=== PATIENT | male | born 1990 | race Caucasian/White ===

== ENCOUNTER 2021-05-15 02:27 | Inpatient (IN) | payer OTHER ==
[2021-05-15 02:48] VITALS: BMI 23.1
[2021-05-15] MEDS ORDERED: ONDANSETRON *ODT* 4 MG TABLET SL PRN (03:42)
[2021-05-15] MEDS ORDERED: IBUPROFEN 400 MG TABLET (FP) PO PRN (03:42)
[2021-05-15] MEDS ORDERED: MENTHOL/PHENOL 1 EACH UD MM PRN (03:42)
[2021-05-15] MEDS ORDERED: NICOTINE POLACRILEX 2 MG GUM BUC PRN (03:42)
[2021-05-15] MEDS ORDERED: BISMUTH SUBSALICYLATE 524 MG/30 ML PO PRN (03:42)
[2021-05-15] MEDS ORDERED: MAGNESIUM HYDROX 2400MG/30ML ORAL SUSPENSION 30 ML CUP PO PRN (03:42)
[2021-05-15] MEDS ORDERED: ACETAMINOPHEN 325 MG TABLET (FP) PO PRN (03:42)
[2021-05-15] MEDS ORDERED: MAGNESIUM CITRATE 300 ML BOTTLE PO PRN (03:42)
[2021-05-15] MEDS ORDERED: METHOCARBAMOL 500 MG TABLET PO PRN (03:42)
[2021-05-15] MEDS ORDERED: MAG HYDROX/AL HYDROX/SIMETH 30 ML UNIT-DOSE CUP PO PRN (03:42)
[2021-05-15] MEDS ORDERED: chlordiazePOXIDE HCL 25 MG CAPSULE PO PRN (09:57)
[2021-05-15 10:25] LABS: MCH 32.6 pg (25.7-33.7); MCHC 35.1 g/dl (32.0-35.9); PLATELET COUNT 239 10^3/uL (134-434); RDW 13.3 % (11.9-15.9); WHITE BLOOD COUNT 6.4 K/mm3 (4.0-10.0)
[2021-05-15 10:29] LABS: ALBUMIN 3.6 g/dl (3.4-5.0); BLOOD UREA NITROGEN 6.4 mg/dL (7-18); CALCIUM 9.1 mg/dL (8.5-10.1)
[2021-05-15 10:31] LABS: BILIRUBIN,TOTAL 0.4 mg/dL (0.2-1)
[2021-05-15] MEDS: NICOTINE 14 MG/24 HOURS TOPICAL PATCH TD SCH (10:31)
[2021-05-15 10:32] LABS: CREATININE 0.8 mg/dL (0.55-1.3)
[2021-05-15] MEDS: chlordiazePOXIDE HCL 25 MG CAPSULE PO SCH ×3 (10:32→22:09)
[2021-05-15] MEDS: ACETAMINOPHEN 325 MG TABLET (FP) PO PRN ×2 (10:32→18:06)
[2021-05-15] MEDS: PRENATAL VITAMINS W/ FOLIC ACID TABLET (FP) PO SCH (10:33)
[2021-05-15] MEDS: MELATONIN 5 MG TABLETS PO SCH (22:09)
[2021-05-15] MEDS: THIAMINE HCL 100 MG TABLET (FP) PO SCH (22:09)
[2021-05-16] MEDS: chlordiazePOXIDE HCL 25 MG CAPSULE PO SCH ×4 (06:58→22:32)
[2021-05-16] MEDS: NICOTINE 14 MG/24 HOURS TOPICAL PATCH TD SCH (09:04)
[2021-05-16] MEDS: PRENATAL VITAMINS W/ FOLIC ACID TABLET (FP) PO SCH (10:25)
[2021-05-16] MEDS: MELATONIN 5 MG TABLETS PO SCH (22:31)
[2021-05-16] MEDS: THIAMINE HCL 100 MG TABLET (FP) PO SCH (22:31)
[2021-05-17] MEDS: chlordiazePOXIDE HCL 25 MG CAPSULE PO SCH ×4 (06:33→22:08)
[2021-05-17] MEDS: PRENATAL VITAMINS W/ FOLIC ACID TABLET (FP) PO SCH (10:14)
[2021-05-17] MEDS: NICOTINE 14 MG/24 HOURS TOPICAL PATCH TD SCH (10:14)
[2021-05-17] MEDS: NICOTINE 10 MG CARTRIDGE (INHALER) IH PRN ×2 (15:00→20:01)
[2021-05-17] MEDS: THIAMINE HCL 100 MG TABLET (FP) PO SCH (22:07)
[2021-05-17] MEDS: MELATONIN 5 MG TABLETS PO SCH (22:08)
[2021-05-18] MEDS ORDERED: chlordiazePOXIDE HCL 10 MG CAPSULE PO PRN
[2021-05-18] MEDS: chlordiazePOXIDE HCL 10 MG CAPSULE PO SCH ×2 (06:32→10:20)
[2021-05-18] MEDS: PRENATAL VITAMINS W/ FOLIC ACID TABLET (FP) PO SCH (09:49)
[2021-05-18] MEDS: NICOTINE 10 MG CARTRIDGE (INHALER) IH PRN ×3 (09:50→20:29)
[2021-05-18] MEDS: NICOTINE 14 MG/24 HOURS TOPICAL PATCH TD SCH (09:50)
[2021-05-18] MEDS ORDERED: chlordiazePOXIDE HCL 10 MG CAPSULE PO ONE (22:00)
[2021-05-18] MEDS: THIAMINE HCL 100 MG TABLET (FP) PO SCH (22:25)
[2021-05-18] MEDS: MELATONIN 5 MG TABLETS PO SCH (22:25)
[2021-05-18] MEDS: ACETAMINOPHEN 325 MG TABLET (FP) PO PRN (22:26)
[2021-05-19] MEDS ORDERED: chlordiazePOXIDE HCL 10 MG CAPSULE PO ONE (05:00)
[2021-05-19] MEDS ORDERED: chlordiazePOXIDE HCL 10 MG CAPSULE PO SCH (05:00)
[2021-05-19 08:19] VITALS: TEMP 97.3
[2021-05-19 09:08] VITALS: BP 101/67; PULSE 80
[2021-05-19] MEDS: PRENATAL VITAMINS W/ FOLIC ACID TABLET (FP) PO SCH (09:34)
[2021-05-19] MEDS: NICOTINE 14 MG/24 HOURS TOPICAL PATCH TD SCH (09:35)
[2021-05-20] MEDS ORDERED: chlordiazePOXIDE HCL 10 MG CAPSULE PO ONE (05:00)
== END 2021-05-19 09:37 | disposition home or self-care (01) | DRG 775 ==
LOC: YASAS 02:27 → Y3N 03:10 → UNDOADMIN 03:10
PROVIDERS: ADMIT Allergy & Immunology; ATTEND Allergy & Immunology
PROC: HZ2ZZZZ Detoxification Services for Substance Abuse Treatment (ICD-10-PCS; principal; 2021-05-15)
DX: F10.230 Alcohol dependence with withdrawal, uncomplicated (principal); F17.210 Nicotine dependence, cigarettes, uncomplicated
CPT/HCPCS: 36415; 80053; 85027; 86780; 93005; 93010; C9803; U0003; U0005

== ENCOUNTER 2021-08-29 01:27 | Inpatient (IN) | payer OTHER ==
[2021-08-29] MEDS ORDERED: IBUPROFEN 400 MG TABLET (FP) PO PRN (02:26)
[2021-08-29] MEDS ORDERED: MENTHOL/PHENOL 1 EACH UD MM PRN (02:26)
[2021-08-29] MEDS ORDERED: BISMUTH SUBSALICYLATE 524 MG/30 ML PO PRN (02:26)
[2021-08-29] MEDS ORDERED: METHOCARBAMOL 500 MG TABLET PO PRN (02:26)
[2021-08-29] MEDS ORDERED: MAGNESIUM HYDROX 2400MG/30ML ORAL SUSPENSION 30 ML CUP PO PRN (02:26)
[2021-08-29] MEDS ORDERED: LOPERAMIDE HCL 2 MG CAPSULE PO PRN (02:26)
[2021-08-29] MEDS ORDERED: ONDANSETRON *ODT* 4 MG TABLET SL PRN (02:26)
[2021-08-29] MEDS ORDERED: MAG HYDROX/AL HYDROX/SIMETH 30 ML UNIT-DOSE CUP PO PRN (02:26)
[2021-08-29] MEDS ORDERED: ACETAMINOPHEN 325 MG TABLET (FP) PO PRN ×2 (02:26)
[2021-08-29] MEDS ORDERED: chlordiazePOXIDE HCL 25 MG CAPSULE PO PRN (02:26)
[2021-08-29] MEDS ORDERED: MAGNESIUM CITRATE 300 ML BOTTLE PO PRN (02:26)
[2021-08-29] MEDS ORDERED: NICOTINE POLACRILEX 2 MG GUM BUC PRN (02:26)
[2021-08-29 03:09] VITALS: BMI 23.4
[2021-08-29] MEDS: chlordiazePOXIDE HCL 25 MG CAPSULE PO SCH ×4 (06:06→22:14)
[2021-08-29] MEDS ORDERED: DOXYCYCLINE HYCLATE 100 MG CAPSULE PO SCH ×2 (10:00)
[2021-08-29] MEDS: PRENATAL VITAMINS W/ FOLIC ACID TABLET (FP) PO SCH (10:24)
[2021-08-29] MEDS: DOXYCYCLINE HYCLATE 100 MG TABLET PO SCH ×2 (10:28→17:28)
[2021-08-29] MEDS: NICOTINE 14 MG/24 HOURS TOPICAL PATCH TD SCH (10:31)
[2021-08-29 16:16] LABS: HEMATOCRIT 38.8 % (35.4-49); HEMOGLOBIN 13.5 GM/dL (11.7-16.9); MCHC 34.9 g/dl (32.0-35.9); MEAN CELL VOLUME 88.9 fl (80-96); MEAN PLT VOLUME 7.9 fl (7.5-11.1); PLATELET COUNT 272 10^3/uL (134-434); RBC 4.36 M/mm3 (4.00-5.60); RDW 13.1 % (11.9-15.9); WHITE BLOOD COUNT 5.8 K/mm3 (4.0-10.0)
[2021-08-29 16:22] LABS: ALBUMIN 3.7 g/dl (3.4-5.0); BLOOD UREA NITROGEN 7.7 mg/dL (7-18); CALCIUM 8.5 mg/dL (8.5-10.1)
[2021-08-29 16:25] LABS: CREATININE 0.9 mg/dL (0.55-1.3)
[2021-08-29 16:26] LABS: BILIRUBIN,TOTAL 0.4 mg/dL (0.2-1); TOT PROT 6.6 g/dl (6.4-8.2)
[2021-08-29] MEDS ORDERED: NICOTINE 10 MG CARTRIDGE (INHALER) IH SCH (19:45)
[2021-08-29] MEDS: NICOTINE 10 MG CARTRIDGE (INHALER) IH SCH (21:52)
[2021-08-29] MEDS: THIAMINE HCL 100 MG TABLET (FP) PO SCH (22:14)
[2021-08-29] MEDS: MELATONIN 5 MG TABLETS PO SCH (22:14)
[2021-08-30] MEDS: chlordiazePOXIDE HCL 25 MG CAPSULE PO SCH ×4 (05:59→22:21)
[2021-08-30] MEDS: NICOTINE 10 MG CARTRIDGE (INHALER) IH SCH ×5 (05:59→19:25)
[2021-08-30] MEDS: NICOTINE 14 MG/24 HOURS TOPICAL PATCH TD SCH (10:16)
[2021-08-30] MEDS: DOXYCYCLINE HYCLATE 100 MG TABLET PO SCH ×2 (10:17→18:09)
[2021-08-30] MEDS: PRENATAL VITAMINS W/ FOLIC ACID TABLET (FP) PO SCH (10:18)
[2021-08-30] MEDS: THIAMINE HCL 100 MG TABLET (FP) PO SCH (22:21)
[2021-08-30] MEDS: MELATONIN 5 MG TABLETS PO SCH (22:22)
[2021-08-31] MEDS ORDERED: chlordiazePOXIDE HCL 10 MG CAPSULE PO PRN
[2021-08-31] MEDS: chlordiazePOXIDE HCL 10 MG CAPSULE PO SCH ×4 (05:31→22:20)
[2021-08-31] MEDS: NICOTINE 10 MG CARTRIDGE (INHALER) IH SCH ×4 (05:32→22:21)
[2021-08-31 08:06] LABS: SARS-CoV-2 NAA Not Detected (Not Detected)
[2021-08-31] MEDS: DOXYCYCLINE HYCLATE 100 MG TABLET PO SCH ×2 (10:44→17:20)
[2021-08-31] MEDS: NICOTINE 14 MG/24 HOURS TOPICAL PATCH TD SCH (10:44)
[2021-08-31] MEDS: PRENATAL VITAMINS W/ FOLIC ACID TABLET (FP) PO SCH (10:44)
[2021-08-31] MEDS: THIAMINE HCL 100 MG TABLET (FP) PO SCH (22:20)
[2021-08-31] MEDS: MELATONIN 5 MG TABLETS PO SCH (22:21)
[2021-09-01] MEDS: NICOTINE 10 MG CARTRIDGE (INHALER) IH SCH ×2 (01:55→10:25)
[2021-09-01] MEDS ORDERED: chlordiazePOXIDE HCL 10 MG CAPSULE PO SCH (05:00)
[2021-09-01 09:45] VITALS: BP 133/77; PULSE 94; TEMP 97.1
[2021-09-01] MEDS: DOXYCYCLINE HYCLATE 100 MG TABLET PO SCH (10:25)
[2021-09-01] MEDS: PRENATAL VITAMINS W/ FOLIC ACID TABLET (FP) PO SCH (10:25)
[2021-09-01] MEDS: NICOTINE 14 MG/24 HOURS TOPICAL PATCH TD SCH (10:25)
[2021-09-02] MEDS ORDERED: chlordiazePOXIDE HCL 10 MG CAPSULE PO ONE (05:00)
== END 2021-09-01 12:14 | disposition home or self-care (01) | DRG 775 ==
LOC: YASAS 01:27 → Y6N 02:52
PROVIDERS: ADMIT Allergy & Immunology; ATTEND Allergy & Immunology
PROC: HZ2ZZZZ Detoxification Services for Substance Abuse Treatment (ICD-10-PCS; principal; 2021-08-29)
DX: F10.230 Alcohol dependence with withdrawal, uncomplicated (principal); F17.210 Nicotine dependence, cigarettes, uncomplicated; F10.24 Alcohol dependence with alcohol-induced mood disorder; F10.282 Alcohol dependence with alcohol-induced sleep disorder; F31.9 Bipolar disorder, unspecified; F39 Unspecified mood [affective] disorder; F43.10 Post-traumatic stress disorder, unspecified; R56.9 Unspecified convulsions; Z91.410 Personal history of adult physical and sexual abuse
CPT/HCPCS: 36415; 80053; 85027; 86780; 87811; 93005; 93010; C9803-CS; U0003; U0005